=== PATIENT | female | born 1945 ===

== ENCOUNTER 2018-03-26 13:50 | Emergency (ER) | payer OTHER ==
[2018-03-26 13:51] VITALS: BMI 29.7
[2018-03-26 14:08] VITALS: BP 130/74; PULSE 76; RESP 18; TEMP 99; O2SAT 98
--- NOTE | 2018-03-26 14:22 | ED PDOC ---
HPI: Female Pain Time Seen by Provider: 03/26/18 14:16 Chief Complaint (Nursing): Female Genitourinary Chief Complaint (Provider): pelvic discomfort History Per: Patient (73 y/o female here with urinary burning noted today. Has had h/o bladder prolapse with 'procedure' by residential supervisor 5 years ago. States she now notes that she feels as if her bladder is protruding from vaginal canal. Denies a) Past Medical History Reviewed: Historical Data, Nursing Documentation, Vital Signs Vital Signs: Last Vital Signs Temp 99 F 03/26/18 14:05 Pulse 76 03/26/18 14:05 Resp 18 03/26/18 14:05 BP 130/74 03/26/18 14:05 Pulse Ox 98 03/26/18 14:05 - Medical History PMH: Gall Bladder Disease (hx gallstones), HTN, Hypercholesterolemia, Seizures ( epilepsy no meds at present last seizure 4 yearsa go) Denies: Diabetes, Chronic Kidney Disease - Surgical History Surgical History: Cholecystectomy - Family History Family History: States: No Known Family Hx - Home Medications Home Medications: Ambulatory Orders Medication Instructions Recorded Valsartan/Hydrochlorothiazide 1 each PO DAILY 01/08/17 [Valsartan-Hctz 80-12.5 mg Tab] Rosuvastatin Calcium [Crestor] 20 mg PO DAILY 07/08/17 Cephalexin [Keflex] 500 mg PO TID #15 capsule 03/26/18 - Allergies Allergies/Adverse Reactions: Allergies Allergy/AdvReac Type Severity Reaction Status Date / Time No Known Allergies Allergy Verified 03/26/18 14:05 Review of Systems ROS Statement: Except As Marked, All Systems Reviewed And Found Negative Physical Exam - Reviewed Nursing Documentation Reviewed: Yes Vital Signs Reviewed: Yes - Physical Exam Appears: Positive for: Well, Non-toxic, No Acute Distress Head Exam: Positive for: ATRAUMATIC, NORMAL INSPECTION, NORMOCEPHALIC Skin: Positive for: Normal Color, Warm, DRY Eye Exam: Positive for: EOMI, Normal appearance, PERRL ENT: Positive for: Normal ENT Inspection Neck: Positive for: Normal, Painless ROM Cardiovascular/Chest: Positive for: Regular Rate, Rhythm Respiratory: Positive for: CNT, Normal Breath Sounds Gastrointestinal/Abdominal: Positive for: Normal Exam, Soft Pelvic Exam: Positive for: Other (no vaginal mass noted.) Back: Positive for: Normal Inspection Extremity: Positive for: Normal ROM Neurologic/Psych: Positive for: Alert, Oriented - Laboratory Results Urine dip results: Positive for: Leukocyte Esterase, Blood. Negative for: Nitrate, Ketones, Glucose, Bilirubin, Protein - ECG O2 Sat by Pulse Oximetry: 98 Disposition - Clinical Impression Clinical Impression: Bladder prolapse, UTI (urinary tract infection) - Patient ED Disposition Is Patient to be Admitted: No - Disposition Referrals: Omega Godwin MD [Staff Provider] - [facility] - [place] [Outside] Disposition: Routine/Home Disposition Time: 14:29 Condition: FAIR Prescriptions: Cephalexin [Keflex] 500 mg PO TID #15 capsule Instructions: Urinary Tract Infection, Adult (DC)
[2018-03-26 14:49] LABS: SQUAMOUS EPITHIAL 2 /hpf (0-5); URINE BILIRUBIN NEGATIVE (NEGATIVE); URINE BLOOD SMALL (NEGATIVE); URINE CLARITY CLOUDY (Clear); URINE COLOR YELLOW (YELLOW); URINE GLUCOSE (UA) NEG (Normal); URINE LEUKOCYTE ESTERASE MOD Leu/uL (Negative); URINE PROTEIN 30 mg/dL (NEGATIVE); URINE UROBILINOGEN 0.2-1.0 mg/dL (0.2-1.0)
== END 2018-03-26 15:05 | disposition home or self-care (01) ==
LOC: H.ER 13:50
DX: N39.0 Urinary tract infection, site not specified (principal); N81.2 Incomplete uterovaginal prolapse; E78.00 Pure hypercholesterolemia, unspecified; G40.909 Epilepsy, unspecified, not intractable, without status epilepticus; I10 Essential (primary) hypertension

== ENCOUNTER 2018-10-01 07:54 | Emergency (ER) | payer OTHER ==
[2018-10-01 08:00] VITALS: BMI 29.2
[2018-10-01 08:01] VITALS: TEMP 98.1
--- NOTE | 2018-10-01 09:03 | ED PDOC ---
HPI: Hypertension/Hypotension Chief Complaint (Provider): High Blood pressure Additional History Per: Patient Additional Complaint(s): This is 73 y/o F with PMH of HTN and HLD comes to the ER for hypertension. Patient reports she stopped taking her blood pressure medications since this month w/o consulting with her PMD. Patient was checking her BP at home and systolic 160-165 which prompted her to visit ER. Patient reports mild 4/10 headache but no blurred vision, slurred speech, palpitations, chest pain, SOB, or weakness. PMH: HTN, HLD PSH: varicose veins and Gallbladder removed Allg: NKDA FH: Denies SH: No smoking/alcohol or drug use ROS: As per HPI, no abdominal pain, dysuria, weakness. <Robert Martinez - Last Filed: 10/01/18 10:43> <Hermelindo Acharya - Last Filed: 10/02/18 15:29> Time Seen by Provider: 10/01/18 07:59 Chief Complaint (Nursing): High Blood Pressure Supervising Attending Note - Supervising Attending Note The Documented history was done by the: Physician Typing Secretary, Attending Physician The documented physical exam was done by the: Physician Typing Secretary, Attending Physician The documented procedures were done by the: Physician Typing Secretary, Attending Physician - Attestation: I have personally seen and examined this patient.: Yes I have fully participated in the care of the patient.: Yes I have reviewed all pertinent clinical information, including history, physical exam and plan: Yes <Hermelindo Acharya - Last Filed: 10/02/18 15:29> Past Medical History Vital Signs: Last Vital Signs Temp 98.1 F 10/01/18 08:00 Pulse 75 10/01/18 08:14 Resp 21 10/01/18 08:14 BP 158/80 H 10/01/18 08:14 Pulse Ox 96 10/01/18 08:14 - Medical History PMH: Gall Bladder Disease (hx gallstones), HTN, Hypercholesterolemia, Seizures (epilepsy no meds at present last seizure 4 yearsa go) Denies: Diabetes, Chronic Kidney Disease - Surgical History Surgical History: Cholecystectomy - Family History Family History: States: No Known Family Hx - Immunization History Hx Tetanus Toxoid Vaccination: No <Robert Martinez - Last Filed: 10/01/18 10:43> Reviewed: Historical Data, Nursing Documentation, Vital Signs Vital Signs: Last Vital Signs Temp 98.1 F 10/01/18 10:37 Pulse 62 10/01/18 10:37 Resp 16 10/01/18 10:37 BP 129/69 10/01/18 10:37 Pulse Ox 96 10/01/18 10:43 <Hermelindo Acharya - Last Filed: 10/02/18 15:29> - Home Medications Home Medications: Ambulatory Orders Medication Instructions Recorded Valsartan/Hydrochlorothiazide 1 each PO DAILY 01/08/17 [Valsartan-Hctz 80-12.5 mg Tab] RX: Rosuvastatin Calcium [Crestor] 20 mg PO DAILY 07/08/17 Cephalexin [Keflex] 500 mg PO TID #15 capsule 03/26/18 RX: Losartan [Cozaar] 50 mg PO DAILY #30 tab 10/01/18 - Allergies Allergies/Adverse Reactions: Allergies Allergy/AdvReac Type Severity Reaction Status Date / Time No Known Allergies Allergy Verified 03/26/18 14:05 Review of Systems Constitutional: Negative for: Fever Eyes: Negative for: Pain ENT: Negative for: Ear Pain, Ear Discharge Cardiovascular: Negative for: Chest Pain, Palpitations Respiratory: Negative for: Cough, Shortness of Breath, Hemoptysis Gastrointestinal: Negative for: Nausea, Vomiting, Abdominal Pain Genitourinary Female: Negative for: Dysuria, Frequency Musculoskeletal: Negative for: Neck Pain, Arm Pain Skin: Negative for: Rash Neurological: Positive for: Headache. Negative for: Weakness, Numbness Psych: Negative for: Anxiety <Robert Martinez - Last Filed: 10/01/18 10:43> ROS Statement: Except As Marked, All Systems Reviewed And Found Negative <Hermelindo Acharya A - Last Filed: 10/02/18 15:29> Physical Exam - Physical Exam Appears: Positive for: No Acute Distress Head Exam: Positive for: NORMAL INSPECTION Skin: Positive for: Normal Color. Negative for: Diaphoresis Eye Exam: Positive for: Normal appearance, EOMI, PERRL ENT: Positive for: Normal ENT Inspection, Sinus Pain/Drainage Cardiovascular/Chest: Positive for: Regular Rate, Rhythm, Tachycardia. Negative for: JVD, Murmur Respiratory: Positive for: Normal Breath Sounds. Negative for: Decreased Breath Sounds, Accessory Muscle Use, Crackles Gastrointestinal/Abdominal: Positive for: Normal Exam, Bowel Sounds, Soft. Negative for: Tenderness Back: Positive for: Normal Inspection. Negative for: L CVA Tenderness, R CVA Tenderness Extremity: Positive for: Normal ROM. Negative for: Tenderness, Pedal Edema Neurologic/Psych: Positive for: Alert, Oriented. Negative for: Motor/Sensory Deficits <Robert Martinez - Last Filed: 10/01/18 10:43> - Reviewed Nursing Documentation Reviewed: Yes Vital Signs Reviewed: Yes <Hermelindo Acharya - Last Filed: 10/02/18 15:29> - Laboratory Results Result Diagrams: 10/01/18 09:00 - ECG O2 Sat by Pulse Oximetry: 96 - Progress ED Course And Treament: A/P: 73 y/o F with High blood pressure. - BMP - EKG - Losartan 50mg STAT - Monitor BP and cardio monitoring Case discussed with Dr. Acharya EKG: NSR BMP reviewed Patient is asymptomatic Re-evaluation Time: 10:23 Condition: Improved <Robert Martinez - Last Filed: 10/01/18 10:43> - Laboratory Results Result Diagrams: 10/01/18 09:00 <Hermelindo Acharya - Last Filed: 10/02/18 15:29> Medical Decision Making Medical Decision Making: High blood pressure <Robert Martinez - Last Filed: 10/01/18 10:43> Disposition - Patient ED Disposition Is Patient to be Admitted: No - Disposition Disposition: Routine/Home Disposition Time: 10:27 <Robert Martinez - Last Filed: 10/01/18 10:43> Counseled Patient/Family Regarding: Studies Performed, Diagnosis, Need For Followup <Hermelindo Acharya - Last Filed: 10/02/18 15:29> - Clinical Impression Clinical Impression: High blood pressure - Disposition Referrals: Ernestine Espinoza MD [Medical Doctor] - Condition: STABLE Additional Instructions: - Continue BP medications - Low sodium diet - Follow up with PMD in 2-3 days - ER precautions discussed with patient Prescriptions: RX: Losartan [Cozaar] 50 mg PO DAILY #30 tab Instructions: High Blood Pressure in Adults, Low Salt Diet Print Language: [place]
[2018-10-01 09:37] LABS: BLOOD UREA NITROGEN 19 mg/dl (7-17); CALCIUM 9.6 mg/dL (8.4-10.2); GFR NON-AFRICAN AMERICAN > 60
[2018-10-01 10:38] VITALS: BP 129/69; PULSE 62; RESP 16
[2018-10-01 10:43] VITALS: O2SAT 96
--- NOTE | 2018-10-01 12:40 | CARD ---
APPROVED REPORT Date of service: 10/01/2018 EKG Measurement Heart [id number] <Conclusion> Normal sinus rhythm Normal ECG
== END 2018-10-01 10:50 | disposition home or self-care (01) ==
LOC: H.ER 07:54
DX: I10 Essential (primary) hypertension (principal)